=== PATIENT | female | born 1985 | race Caucasian/White ===

== ENCOUNTER 2019-11-08 00:45 | Outpatient (CLI) | payer OTHER, SELFPAY ==
--- NOTE | 2019-11-08 01:38 | OB.TRI.NOTE ---
History of Present Illness Date of Service: 11/08/19 Reason For Visit: R/O Date of Service: 11/08/19 Final JAIME: 11/27/19 Gestational age: 37 Weeks and 2 Days Allergies PINE TREES Allergy (Uncoded 10/06/14 10:05) Itching NST - FHR Rate Baby A Baseline: 135 Variability:: Moderate Accelerations:: 15 x 15 Decelerations:: Variable NST Reactive:: Yes Uterine Activity:: Irregular Impression/Plan Reactive NST for false labor
== END 2019-11-08 01:45 | disposition home or self-care (01) ==
LOC: WPOUT 01:31 → WP 01:32
PROVIDERS: PCP Student in an Organized Health Care Education/Training Program; Referring Provider Obstetrics & Gynecology; Visit Provider Obstetrics & Gynecology
DX: O47.1 False labor at or after 37 completed weeks of gestation (principal); Z3A.00 Weeks of gestation of pregnancy not specified
CPT/HCPCS: 59025; 59050; 99218; G0378

== ENCOUNTER 2019-11-13 19:00 | Inpatient (IN) | payer OTHER, SELFPAY ==
[2014-10-14 08:38] VITALS: BMI 20.9
[2019-11-13 17:47] VITALS: BMI 27.9
[2019-11-13] MEDS: Lactated Ringers 500 ML 999 ML IV ×2 (19:30→21:26)
[2019-11-13 19:50] LABS: Absolute Lymphocyte Count 3.25 X10^3/uL (0.83-4.51); Absolute Neutrophil Count 7.4 X10^3/uL (2.0-7.7); Basophil# 0.02 X10^3/uL; Basophil% 0.2 % (0-1); Eosinophil# 0.04 X10^3/uL; Eosinophils% 0.3 % (0-5); Hematocrit 40.2 % (37-47); Hemoglobin 13.3 g/dL (12.0-15.0); Lymphocyte # 3.25 X10^3/ul (4.0); Lymphocyte % 27.9 % (19-41); Mean Corp Hgb Conc 33.1 g/dL (32-36); Mean Corpuscular Hgb 29.4 pg (27.0-32.0); Mean Corpuscular Volume 88.9 fL (81-99); Mean Platelet Vol. 9.6 fl (6.2-12.0); Monocyte# 0.92 X10^3/uL; Monocyte% 7.9 % (0-10); NRBC Flagged by Analyzer 0 % (0-5); Neutrophil # 7.38 X10^3/uL (2.7-7.7); Neutrophil % 63.3 % (47-70); Platelet Count 220 K/mm3 (150-450); RBC Distribution Width CV 13.7 % (11.6-14.6); RBC Distribution Width SD 43.7 fl (35.1-43.9); Red Blood Count 4.52 M/mm3 (4.2-5.4); White Blood Count 11.7 K/mm3 (4.4-11.0)
[2019-11-13] MEDS: Lactated Ringers 1,000 ML 200 ML IV (20:00)
[2019-11-13] MEDS: fentaNYL-bupivacaine (epidural) 100 ML BAG EPIDURAL (20:57)
--- NOTE | 2019-11-13 21:17 | PCM.HP.OB ---
History Date of Admission: 11/13/19 Final JAIME: 11/27/19 Gestational age: 38 Weeks and 0 Days History of this : This is a 34 year-old, G 2P1 at 38 weeks gestation presents in labor. Patient was found to make cervical change from 3 to 5 cm aziza every 1 to 2 minutes. Patient has been on ursodiol for pruritus of with normal bile acids. Ursodiol was continued for symptomatic relief. Allergies pomegranate Adverse Reaction (Verified 11/13/19 18:40) Itching PINE TREES Allergy (Uncoded 10/06/14 10:05) Itching Home Medications: Home Medications Venlafaxine XR [Effexor Xr] 150 mg PO DAILY 10/06/14 Hydroxyzine Pamoate [Vistaril] 50 mg PO TID PRN PRN 11/13/19 Vit No.130/Iron/Folic [ Tablet] 1 ea PO DAILY 11/13/19 Ursodiol 250 mg PO TID 11/13/19 Smoking Status: Never smoker NST - FHR Rate Baby A Baseline: 140 Variability:: Moderate Accelerations:: 15 x 15 Decelerations:: None NST Reactive:: Yes FHR Category:: Category I Uterine Activity:: q1-2 History Past Pregnancies: Past Pregnancies Delivery Date Name GA/ Weeks Outcome Route Wt Sex Labor Length Anesthesia Delivery Location Provider FOB Labs: GBS neg, O+ Expected Infant Delivery Method: Spontaneous Vaginal Review of Systems Constitutional: Denies: Anorexia Cardiovascular: Denies: Chest Pain Gastrointestinal: Reports: Abdominal Pain - from contractions Physical Exam General: Alert, Oriented x3 Abdomen: Soft, Non-Distended, Gravid Neurological: Cranial nerves II-XII grossly intact 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
--- NOTE | 2019-11-13 21:28 | PCM.PN.BLA ---
Progress Note Bedside ultrasound performed prior to AROM- upon review of anatomy us - showed anterior low lying placenta- on ultrasound today placenta was anterior fundal. AROM performed- scant fluid.
[2019-11-13] MEDS: Oxytocin 30 units/NS 500 ml 30 UNITS/500 ML IV.SOLN 334 UNITS IV (21:55)
--- NOTE | 2019-11-13 22:04 | PCM.OPRPT ---
Vaginal Delivery Maternal Presentation: Active Labor Amniotic Membrane Rupture Type: Artificial Amniotic Fluid Description: Clear Final JAIME: 11/27/19 Gestational age: 38 Weeks and 0 Days Date of Procedure: 11/13/19 Pre-Operative Diagnosis: term gestation, Active labor Post-Operative Diagnosis: Live female Surgery/ Procedure Performed: Spontaneous Vaginal Delivery Type of Anesthesia: Epidural Description of Procedure: of live female infant born without complication. Delayed cord clamping. vigorous at delivery- placed on mother for immediate skin to skin. No lacerations. Placenta delivered intact. Presentation: Vertex Placental Delivery Description: Spontaneous Placenta Disposition: [facility] Cord Vessel Description: 3 Vessels Cord Entanglement: None Estimated Blood Loss: 200 A gender: Female (1 minute): 8 (5 minute): 9 Episiotomy Description: None Laceration: None Medications given after delivery: IV Pitocin Complications: None
[2019-11-14 04:22] VITALS: BP 131/86; PULSE 90; RESP 18; TEMP 36.7
--- NOTE | 2019-11-14 07:29 | PCM.PN.OB ---
Subjective: Patient seen at bedside, doing well. Patient reports good pain control. Mild lochia. Breast-feeding without difficulty. Patient would like to be DC'd home today - Physical Exam Vitals/I&O's: Vital Signs Temp Pulse Resp BP 98.1 F 90 18 131/86 H 11/14/19 04:22 11/14/19 04:22 11/14/19 04:22 11/14/19 04:22 Weight: 73.936 kg Body Mass Index (BMI) 27.9 Intake and Output for Last 24 Hours 11/12/19 11/13/19 11/14/19 23:59 23:59 23:59 Intake Total 1538.75 / 1538.75 827.43 / 827.43 Balance 1538.75 / 1538.75 827.43 / 827.43 General: Alert, Oriented x3 Abdomen: Soft, - - fundus firm Extremities: No Calf Tenderness Laboratory Results 11/13/19 19:30: WBC 11.7 H, RBC 4.52, Hgb 13.3, Hct 40.2, MCV 88.9, MCH 29.4, MCHC 33.1, RDW Std Deviation 43.7, RDW Coeff of Zachariah 13.7, Plt Count 220, MPV 9.6, Immature Gran % (Auto) 0.400, Neut % (Auto) 63.3, Lymph % (Auto) 27.9, Ponce % (Auto) 7.9, Eos % (Auto) 0.3, Baso % (Auto) 0.2, Absolute Neuts (auto) 7.4, Absolute Lymphs (auto) 3.25, Nucleated RBC % 0 11/13/19 19:56: Blood Type O POSITIVE, Antibody Screen NEGATIVE Current Medications Acetaminophen (Tylenol) 1,000 mg PO Q8H PRN PRN PRN Reason: Pain Score 1-3/10 Bisacodyl (Dulcolax) 10 mg RECTAL UD PRN PRN Reason: If no BM Dibucaine (Dibucaine) 1 applic TOPICAL TID PRN PRN; Protocol PRN Reason: Discomfort Hydrocortisone (Hytone) 1 applic TOPICAL TID PRN PRN; Protocol PRN Reason: Discomfort Ibuprofen (Motrin) 600 mg PO Q6H PRN PRN PRN Reason: Pain Score 1-3/10 Methylergonovine Maleate (Methergine) 0.2 mg IM X1 PRN PRN Reason: Excess bleeding/uterine atony Ondansetron HCl (Zofran) 4 mg IV Q4H PRN PRN PRN Reason: Nausea Oxycodone HCl (Oxyir) 5 - 10 mg PO Q4H PRN PRN PRN Reason: Pain Score 4-10/10 Senna/Docusate Sodium (Senokot-S, Cristy-Colace) 1 - 2 tablet PO DAILY PRN PRN PRN Reason: Constipation Simethicone (Mylicon) 80 mg PO PCHS PRN PRN Reason: Indigestion/Stomach pain Sodium Chloride () 5 - 15 ml IV UD PRN PRN Reason: SALINE FLUSH Venlafaxine HCl (Effexor Xr) 150 mg PO DAILY [facility] Medical Necessity - Tobacco Use Smoking Status: Never smoker Assessment/Plan PPD#1, doing well routine care pain mgmt dc home today- after dinner
[2019-11-14 09:03] VITALS: BP 130/82; PULSE 103; RESP 18; TEMP 36.8; O2SAT 97
[2019-11-14 12:18] VITALS: BP 131/83; PULSE 92; RESP 16; TEMP 36.9
[2019-11-14] MEDS: Venlafaxine XR 150 MG Capsule PO (13:53)
[2019-11-14 16:34] VITALS: BP 126/79; PULSE 99; RESP 16; TEMP 36.8
[2019-11-14 20:21] VITALS: BP 118/77; PULSE 70; RESP 16; TEMP 36.8
--- NOTE | 2019-11-14 21:19 | NURSING ---
pt. answered yes to both PHQ2 questions, scored a 3 on PHQ9, wanting 24 hour discharge evening of 11/14/2019 and does not desire to stay to see social insurance administrator, reports to this RN hx. 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 post depression symptoms and importance of contacting when feeling symptoms, pt. verbalized understanding and plan to contact if needed
--- NOTE | 2019-11-14 22:54 | NURSING ---
no discharge instructions in for mother, spoke via telephone to Olive Chen to verify doctor comfortable with standard vaginal discharge instructions, pt. to follow up if desired at 2 weeks for depression screening, again at 6 weeks for post screening
== END 2019-11-14 23:35 | disposition home or self-care (01) | DRG 807 ==
LOC: WPOUT 19:02 → WP 19:02
PROVIDERS: Admitting Provider Obstetrics & Gynecology; PCP Student in an Organized Health Care Education/Training Program; Referring Provider Obstetrics & Gynecology; Visit Provider Obstetrics & Gynecology
DX: O99.344 Other mental disorders complicating childbirth (principal); Z37.0 Single live birth; F32.9 Major depressive disorder, single episode, unspecified; Z3A.38 38 weeks gestation of pregnancy; Z79.899 Other long term (current) drug therapy
CPT/HCPCS: 59025; 59050; 76815; 85025; 86850; 86900; 86901; 99218; J7120; G0378